=== PATIENT | female | born 1990 | race Caucasian/White ===

== ENCOUNTER 2017-02-06 22:10 | Emergency (ER) | payer MEDICAID ==
[~2017-02-06] VITALS: Ht 165.1 cm; Wt 70.0 kg
[2017-02-06 22:13] VITALS: BP 116/92
== END 2017-02-07 00:08 | disposition home or self-care (01) ==
LOC: ER 22:38
DX: F41.0 Panic disorder [episodic paroxysmal anxiety] (principal)
CPT/HCPCS: 81025; 99283